=== PATIENT | male | born 1985 | race American Indian/Alaskan Native ===

== ENCOUNTER 2017-11-27 14:35 | Emergency (ER) | payer OTHER ==
[2017-11-27 14:41] VITALS: BP 128/78; PULSE 78; TEMP 98.1; O2SAT 98
--- NOTE | 2017-11-27 14:53 | C.PDOC ---
History Of Present Illness 32 year old male presents to the ED complaining of fever, chills, body aches, chest congestion and headache for four days. Patient denies any sick contacts at home or work. He denies any cough, throat pain, or ear pain. Time Seen by Provider: 11/27/17 14:49 Chief Complaint (Nursing): Cough, Cold, Congestion History Per: Patient History/Exam Limitations: no limitations Onset/Duration Of Symptoms: Days Current Symptoms Are (Timing): Still Present Location Of Pain: Sinus/es, Headache Sick Contacts (Context): None Associated Symptoms: Fever, Chills. denies: Sore Throat, Nasal Congestion Past Medical History Reviewed: Historical Data, Nursing Documentation, Vital Signs Vital Signs: Last Vital Signs Temp 98.1 F 11/27/17 14:38 Pulse 78 11/27/17 14:38 Resp 18 11/27/17 15:07 BP 128/78 11/27/17 14:38 Pulse Ox 98 11/27/17 15:06 - Medical History PMH: No Chronic Diseases Other Surgeries: Hx of surgeries Family History: States: No Known Family Hx - Social History Hx Alcohol Use: Yes Hx Substance Use: No - Immunization History Hx Tetanus Toxoid Vaccination: Yes Hx Influenza Vaccination: No Hx Pneumococcal Vaccination: No Review Of Systems Constitutional: Positive for: Fever, Chills, Other (body aches) ENT: Negative for: Ear Pain, Nose Congestion, Throat Pain Cardiovascular: Positive for: Other (Chest congestion) Respiratory: Negative for: Cough Neurological: Positive for: Headache Physical Exam - Physical Exam Appears: Well, Non-toxic, No Acute Distress Skin: Warm, Dry, No Rash Head: Atraumatic, Normacephalic Eye(s): bilateral: Normal Inspection, EOMI Ear(s): Bilateral: Normal Nose: Other (Boggy erythematous turbinates ) Oral Mucosa: Moist Tongue: Normal Appearing Lips: Normal Appearing Gingiva: Normal Appearing Throat: Normal, No Erythema, No Exudate, No Drooling Neck: Normal ROM, Supple Chest: Symmetrical Cardiovascular: Rhythm Regular, No Murmur Respiratory: Normal Breath Sounds, No Rales, No Rhonchi, No Wheezing Extremity: Bilateral: Atraumatic, Normal Color And Temperature, Normal ROM Neurological/Psych: Oriented x3, Normal Speech Gait: Steady ED Course And Treatment O2 Sat by Pulse Oximetry: 98 (RA) Pulse Ox Interpretation: Normal Medical Decision Making Medical Decision Making: Impression: Sinusitis Patient remained afebrile during ER evaluation. Patient instructed to take Tylenol or Motrin alternating every 4-6 hours for Fever 100.4F or higher. Patient advised to try taking over the counter antihistamine (Claritin, Ame , Zyrtec), Decongestant (Sudafed or Mucinex), or Nasal spray (Flonase) to help with symptoms. Patient given Rx for Augmentin and instructed to follow up with clinic. Disposition Counseled Patient/Family Regarding: Need For Followup, Rx Given - Disposition [facility] Disposition: HOME/ ROUTINE Disposition Time: 14:53 Condition: GOOD Additional Instructions: Take Tylenol or Motrin alternating every 4-6 hours for Fever 100.4F or higher. Rest and drink plenty of fluids. May use cool mist humidifier or vaporizer in room. 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 - Scribe Statement The provider has reviewed the documentation as recorded by the Bernaibmelody Zee All medical record entries made by the Olegario were at my direction and personally dictated by me. I have reviewed the chart and agree that the record accurately reflects my personal performance of the history, physical exam, medical decision making, and the department course for this patient. I have also personally directed, reviewed, and agree with the discharge instructions and disposition.
[2017-11-27 15:09] VITALS: RESP 18
== END 2017-11-27 15:10 | disposition home or self-care (01) ==
LOC: C.ER 14:35
DX: J32.9 Chronic sinusitis, unspecified (principal)